=== PATIENT | male | born 1990 | race Caucasian/White ===

== ENCOUNTER 2018-09-15 00:13 | Emergency (ER) | payer OTHER ==
[2018-09-15 00:30] VITALS: BP 110/60
--- NOTE | 2018-09-15 00:58 | Cat Scan Report ---
PROCEDURE: CT HEAD/BRAIN WO CON ?? COMPARISON: None available. ?? HISTORY: Head injury. TECHNIQUE: Non-contrast CT brain. MPR. Overall image quality is satisfactory. ?? COMMENTS: ?? BONE - Calvarium: Intact. Central skull base: Intact. Temporal mastoids: No effusion. Included paranasal sinuses: Well aerated. Intact globes. ?? CSF SPACES - Ventricles: Normal. Subarachnoid spaces: Normal. ?? BRAIN - No abnormal parenchymal attenuation. No acute intracranial bleed, large vessel territory infarct or mass. ?? IMPRESSION: No acute intracranial pathology. ?? This document is electronically signed by Bg Dumont DO., Sep 15 2018 12:56:29 AM ET
[2018-09-15] MEDS ORDERED: FIORICET PO ONE (02:43)
[2018-09-15] MEDS ORDERED: IBUPROFEN PO ONE (02:43)
[2018-09-15] MEDS ORDERED: ZOFRAN ODT PO ONE (02:44)
--- NOTE | 2018-09-15 03:25 | Emergency Department Report ---
ED Head Trauma HPI - General Chief complaint: Head Injury Stated complaint: HEAD INJURY/WORK RELATED Time Seen by Provider: 09/15/18 02:40 Source: patient Mode of arrival: Ambulatory Limitations: No Limitations - History of Present Illness Initial comments: Patient is a 28-year-old Spanish male with no past medical history presents to the ED with complaint of acute onset persistent severe headache, lightheadedness and dizziness as well as nausea for the last 24 hours after he accidentally hit his head against a metallic bar at work 24 hours ago. Patient denies loss of consciousness, vomiting, neck pain, chest pain, shortness of breath, seizures, syncope, change in vision or back pain, fall or dysphagia. Patient states that his symptoms are being persistent since the incident occurred 24 hours ago despite him taking [id number]-[id number] medications for pain. MD Complaint: head injury, head pain -: Gradual, Sudden, hour(s) (24) Arrival Conditions: Positive: other (ambulatory ) Mechanism of Injury: work related injury, machine or tool related, other (hit head against a machine at work) Location: parietal Loss of Consciousness: no Previous Trauma to this Area: No Place: work Radiation: none Severity: severe Severity scale (0 -10): 7 Quality: sharp Consistency: constant Provoking factors: none known Other Injuries: none Associated Symptoms: denies other symptoms. denies: confusion, amnesia, repetitive questioning, vision changes, vomiting, syncope, neck pain - Related Data Previous Rx's Medication Instructions Recorded Last Taken Type Butalb/Acetamin/Caff 50-325-40 1 each PO Q4H PRN #15 tablet 09/15/18 Unknown Rx [Fioricet] Ibuprofen [Motrin] 800 mg PO Q8HR PRN #20 tablet 09/15/18 Unknown Rx Meclizine [Antivert] 25 mg PO TID PRN #30 tablet 09/15/18 Unknown Rx Allergies/Adverse reactions: Allergies Allergy/AdvReac Type Severity Reaction Status Date / Time No Known Allergies Allergy Unverified 09/15/18 00:19 ED Review of Systems ROS: Stated complaint: HEAD INJURY/WORK RELATED Other details as noted in HPI Comment: All other systems reviewed and negative Constitutional: no symptoms reported, see HPI Eyes: as per HPI. denies: eye pain, eye discharge ENT: as per HPI Respiratory: no symptoms reported. denies: cough, shortness of breath, SOB with exertion Cardiovascular: as per HPI. denies: chest pain, palpitations, syncope Endocrine: no symptoms reported. denies: see HPI Gastrointestinal: as per HPI, nausea. denies: vomiting Genitourinary: as per HPI Musculoskeletal: as per HPI. denies: back pain, arthralgia, myalgia Skin: as per HPI Neurological: as per HPI, headache. denies: weakness, paresthesias, confusion, vertigo Psychiatric: as per HPI Hematological/Lymphatic: as per HPI ED Past Medical Hx - Past Medical History Previous Medical History?: No - Surgical History Past Surgical History?: No - Social History Smoking Status: Never Smoker Substance Use Type: None - Medications Home Medications: Home Medications Medication Instructions Recorded Confirmed Last Taken Type Butalb/Acetamin/Caff 50-325-40 1 each PO Q4H PRN #15 tablet 09/15/18 Unknown Rx [Fioricet] Ibuprofen [Motrin] 800 mg PO Q8HR PRN #20 tablet 09/15/18 Unknown Rx Meclizine [Antivert] 25 mg PO TID PRN #30 tablet 09/15/18 Unknown Rx ED Physical Exam - General Limitations: No Limitations General appearance: alert, in no apparent distress - Head Head exam: Present: normal inspection - Expanded Head Exam Expanded Head exam: Present: contusion - Eye Eye exam: Present: normal appearance, PERRL, EOMI Pupils: Present: normal accommodation - ENT ENT exam: Present: normal exam, normal orophraynx, mucous membranes moist, TM's normal bilaterally, normal external ear exam - Neck Neck exam: Present: normal inspection, full ROM. Absent: tenderness - Respiratory Respiratory exam: Present: normal lung sounds bilaterally. Absent: respiratory distress, wheezes, chest wall tenderness - Cardiovascular Cardiovascular Exam: Present: regular rate, normal rhythm, normal heart sounds - GI/Abdominal GI/Abdominal exam: Present: soft, hyperactive bowel sounds. Absent: tenderness - Rectal Rectal exam: Present: deferred - Extremities Exam Extremities exam: Present: normal inspection, normal capillary refill. Absent: full ROM - Back Exam Back exam: Present: normal inspection, full ROM - Neurological Exam Neurological exam: Present: alert, oriented X3, CN II-XII intact, normal gait, reflexes normal - Psychiatric Psychiatric exam: Present: normal affect - Skin Skin exam: Present: warm, dry, intact, normal color ED Course Vital Signs 09/15/18 00:26 Temperature 98 F Pulse Rate 71 Respiratory 16 Rate Blood Pressure 110/60 O2 Sat by Pulse 99 Oximetry - Radiology Data Radiology results: report reviewed, image reviewed - Medical Decision Making Patient is alert and oriented 3 and is mostly in distress with normal vital signs. Patient resting comfortably in the chair cuddling with his girlfriend and appears to be in no distress. Patient was treated for pain in the ED and head CT scan without contrast shows no acute intracranial abnormalities. On reevaluation, patient's pain is well controlled and patient discharged home on pain medications and muscle relaxants as well as antiemetics. Patient advised to return to the ED immediately if symptoms get worse, otherwise follow up with his primary care physician in 2-3 days for reevaluation. - Differential Diagnosis Concussion; Acute post-traumatic headache, Scalp contusion - Core Measures AMI Core Measures Followed: No Measure Exclusions: not indicated - NEXUS Criteria Focal neurological deficit present: No Midline spinal tenderness present: No Altered level of consciousness: No Intoxication present: No Distracting injury present: No NEXUS results: C-Spine can be cleared clinically by these results. Imaging is not required. Critical care attestation.: If time is entered above; I have spent that time in minutes in the direct care of this critically ill patient, excluding procedure time. ED Disposition Clinical Impression: Post-concussion headache, Acute post-traumatic headache, not intractable Concussion Qualifiers: Encounter type: initial encounter Loss of consciousness presence/duration: without LOC Qualified Code(s): S06.0X0A - Concussion without loss of consciousness, initial encounter Contusion of scalp Qualifiers: Encounter type: initial encounter Qualified Code(s): S00.03XA - Contusion of scalp, initial encounter Disposition: DC-01 TO HOME OR SELFCARE Is pt being admited?: No Does the pt Need Aspirin: No Condition: Stable Instructions: Post Concussion Syndrome (ED), Concussion (ED), Acute Headache (ED) Additional Instructions: Take medications with food, drink plenty of fluids and follow up with your primary care physician in 24-48 hours for reevaluation. Return to ED immediately if symptoms get worse. Prescriptions: Meclizine [Antivert] 25 mg PO TID PRN #30 tablet PRN Reason: Vertigo Butalb/Acetamin/Caff 50-325-40 [Fioricet] 1 each PO Q4H PRN #15 tablet PRN Reason: Headache Ibuprofen [Motrin] 800 mg PO Q8HR PRN #20 tablet PRN Reason: Pain , Severe (7-10) Referrals: KAVITA CULVER MD [Primary Care Provider] - 3-5 Days Time of Disposition: 03:32 Print Language: BRAZILIAN
== END 2018-09-15 04:02 | disposition home or self-care (01) ==
LOC: ED 00:13
DX: S06.0X0A Concussion without loss of consciousness, initial encounter (principal); S00.03XA Contusion of scalp, initial encounter; G44.319 Acute post-traumatic headache, not intractable; W22.8XXA Striking against or struck by other objects, initial encounter; Y93.89 Activity, other specified; Y92.89 Other specified places as the place of occurrence of the external cause; Y99.8 Other external cause status
CPT/HCPCS: 70450; Q0162